=== PATIENT | female | born 1930 | race Caucasian/White ===

== ENCOUNTER 2019-07-26 09:34 | Inpatient (IN) | payer OTHER ==
--- NOTE | 2019-07-26 09:48 | PDOC ---
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 She presents to the emergency department with right hip pain status post presumed fall although patient does not recall unwitnessed. History limited by dementia Past History - Past Medical History Allergies/Adverse Reactions: Allergies Allergy/AdvReac Type Severity Reaction Status Date / Time No Known Allergies Allergy Unverified 07/26/19 09:37 Home Medications: Ambulatory Orders Aspirin 81 mg PO DAILY 07/26/19 Atorvastatin Ca [Lipitor] 80 mg PO HS 07/26/19 Review of Systems - Review of Systems Comments:: 07/26/19 10:53 ROS: A complete review of 10 out of 10 review of systems is taken and is negative apart from what is previously mentioned below and in the HPI. *Physical Exam - Physical Exam 07/26/19 10:54 Vitals: Triage Vital signs reviewed General Appearance: No acute distress, well nourished well developed, Head: Atraumatic, Cardiac: Regular rate and rhythym, no murmurs, no rubs, no gallops, Lungs: Clear to auscultation bilateral, good air movement bilaterally, Abdomen: Soft, non distended, normal bowel sounds, non tender to palpation Extremities: Leg right slightly shortened and rotated tenderness palpation over the right hip neurovascular intact distally Skin: Warm and dry, no rashes or lesions, no rash, no petechiae Neuro: Cranial Nerves 2-12 grossly intact, strength intact to all extremities, sensation intact to all extremities, Psych: Normal mood, normal affect ED Treatment Course - LABORATORY CBC & Chemistry Diagram: 07/26/19 10:30 07/26/19 10:30 Medical Decision Making - Medical Decision Making 07/26/19 10:54 History and examination concerning for right hip fracture. We will x-ray pain meds observe and reassess 07/26/19 17:31 Fracture at the base of the right femoral neck orthopedics consulted preop labs ordered patient admitted to medicine for further management Discharge - Discharge Information Problems reviewed: Yes Clinical Impression/Diagnosis: Hip fracture Qualifiers: Encounter type: initial encounter Fracture type: closed Laterality: right Qualified Code(s): S72.001A - Fracture of unspecified part of neck of right femur, initial encounter for closed fracture Condition: Stable - Admission Yes - Follow up/Referral - Patient Discharge Instructions - Post Discharge Activity
[2019-07-26] MEDS ORDERED: ACETAMINOPHEN 1000 MG/100 ML VIAL (NON FORMULARY) IVPB ONE ×2 (09:49→23:05)
[2019-07-26] MEDS ORDERED: ACETAMINOPHEN INJECTION 100 ML IVPB ONE (09:59)
[2019-07-26 10:57] LABS: HEMATOCRIT 36.5 % (32.4-45.2); HEMOGLOBIN 12.3 GM/dl (10.7-15.3); MCH 30.8 pg (25.7-33.7); MCHC 33.6 g/dl (32.0-36.0); MEAN CELL VOLUME 91.7 fl (80-96); MEAN PLT VOLUME 9.2 fl (7.5-11.1); PLATELET COUNT 261 K/MM3 (134-434); RBC 3.98 M/mm3 (3.60-5.2); RDW 13.4 % (11.6-15.6); WHITE BLOOD COUNT 15.9 K/mm3 (4.0-10.8)
[2019-07-26 11:18] LABS: INR 1.18 (0.82-1.09); PROTHROMBIN TIME (PATIENT) 13.2 SEC (10.2-13.0)
[2019-07-26 11:55] LABS: PLATELET ESTIMATE ADEQUATE
[2019-07-26 13:08] LABS: EPITHELIAL CELLS FEW /hpf
[2019-07-26 13:14] LABS: ALBUMIN 3.3 g/dl (3.4-5.0); BILIRUBIN,TOTAL 0.6 mg/dL (0.2-1); BLOOD UREA NITROGEN 14.4 mg/dL (7-18); CALCIUM 8.5 mg/dL (8.5-10.1); CREATININE 0.7 mg/dL (0.55-1.3); TOT PROT 6.4 g/dl (6.4-8.2)
[2019-07-26 13:44] VITALS: BMI 22.4
--- NOTE | 2019-07-26 13:45 | HP ---
CHIEF COMPLAINT: Right hip pain PCP: Dr. Banuelos HISTORY OF PRESENT ILLNESS: 89 year-old female, resident of [facility], with a PMH significant for hyperlipidemia, dementia, and LLE weakness. Patient complained of right hip pain when the staff got her out of bed today. There was no witnessed fall. Patient has two small abrasions to her right forearm and a small bruise of the right elbow. Patient was brought to the ED and found to have an acute right femoral neck fracture with varus deformity. ER course was notable for: (1) WBC 15.9 (2) Pyuria Recent Travel: No PAST MEDICAL HISTORY: Hyperlipidemia LLE PAST SURGICAL HISTORY: Social History: [place] Smoking: no Alcohol: no Drugs: no Allergies No Known Allergies Allergy (Unverified 07/26/19 09:37) HOME MEDICATIONS: Home Medications Medication Instructions Recorded Aspirin 81 mg PO DAILY 07/26/19 Atorvastatin Ca [Lipitor] 80 mg PO HS 07/26/19 REVIEW OF SYSTEMS: unable to obtain due to dementia PHYSICAL EXAMINATION Vital Signs - 24 hr 07/26/19 07/26/19 07/26/19 09:36 11:53 13:32 Temperature 97.7 F 97.6 F Pulse Rate 96 H 62 Pulse Rate [ 61 Left Radial] Respiratory 18 18 17 Rate Blood Pressure 139/61 131/38 L Blood Pressure 127/49 L [Right Arm] O2 Sat by Pulse 97 96 Oximetry (%) GENERAL: A&Ox1 HEAD: Normal with no signs of trauma. EYES: Pupils equal, round and reactive to light, extraocular movements intact, sclera anicteric, conjunctiva clear. LUNGS: Anterior breath sounds CTA HEART: Regular rate and rhythm, normal S1 and S2 ABDOMEN: Soft, nontender, not distended : hill UPPER EXTREMITIES: 2+ pulses, warm, well-perfused. No cyanosis. No clubbing. No peripheral edema. RIGHT LOWER EXT: 2+ pulses, warm, well-perfused, slightly shortened and slightly rotated; tenderness over right hip; no calf tenderness; no peripheral edema. NEUROLOGICAL: Cranial nerves II-XII intact. Normal speech. Laboratory Results - last 24 hr 07/26/19 07/26/19 07/26/19 10:30 10:30 10:30 WBC 15.9 H RBC 3.98 Hgb 12.3 Hct 36.5 MCV 91.7 MCH 30.8 MCHC 33.6 RDW 13.4 Plt Count 261 MPV 9.2 Absolute Neuts (auto) 14.5 Neutrophils % No Result Required. Neutrophils % (Manual) 85.0 H Band Neutrophils % 2.0 Lymphocytes % No Result Required. Lymphocytes % (Manual) 5.0 L Monocytes % (Manual) 8 Platelet Estimate Adequate PT with INR INR PTT (Actin FS) 26.7 Sodium 140 Potassium 4.0 Chloride 109 H Carbon Dioxide 23 Anion Gap 8 BUN 14.4 Creatinine 0.7 Est GFR (CKD-EPI)AfAm 89.03 Est GFR (CKD-EPI)NonAf 76.82 Random Glucose 130 H Calcium 8.5 Total Bilirubin 0.6 AST 21 ALT 18 Alkaline Phosphatase 159 H Total Protein 6.4 Albumin 3.3 L Urine Color Urine Appearance Urine pH Urine Protein Urine Glucose (UA) Urine Ketones Urine Blood Urine Nitrite Urine Bilirubin Urine Urobilinogen Ur Leukocyte Esterase Urine RBC Urine WBC Ur Transition Epith Cell Urine Bacteria Blood Type Antibody Screen 07/26/19 07/26/19 07/26/19 10:30 10:30 10:35 WBC RBC Hgb Hct MCV MCH MCHC RDW Plt Count MPV Absolute Neuts (auto) Neutrophils % Neutrophils % (Manual) Band Neutrophils % Lymphocytes % Lymphocytes % (Manual) Monocytes % (Manual) Platelet Estimate PT with INR 13.2 H INR 1.18 PTT (Actin FS) Sodium Potassium Chloride Carbon Dioxide Anion Gap BUN Creatinine Est GFR (CKD-EPI)AfAm Est GFR (CKD-EPI)NonAf Random Glucose Calcium Total Bilirubin AST ALT Alkaline Phosphatase Total Protein Albumin Urine Color Urine Appearance Urine pH Urine Protein Urine Glucose (UA) Urine Ketones Urine Blood Urine Nitrite Urine Bilirubin Urine Urobilinogen Ur Leukocyte Esterase Urine RBC Urine WBC Ur Transition Epith Cell Urine Bacteria Blood Type B POSITIVE B POSITIVE Antibody Screen Negative 07/26/19 12:40 WBC RBC Hgb Hct MCV MCH MCHC RDW Plt Count MPV Absolute Neuts (auto) Neutrophils % Neutrophils % (Manual) Band Neutrophils % Lymphocytes % Lymphocytes % (Manual) Monocytes % (Manual) Platelet Estimate PT with INR INR PTT (Actin FS) Sodium Potassium Chloride Carbon Dioxide Anion Gap BUN Creatinine Est GFR (CKD-EPI)AfAm Est GFR (CKD-EPI)NonAf Random Glucose Calcium Total Bilirubin AST ALT Alkaline Phosphatase Total Protein Albumin Urine Color Yellow Urine Appearance Turbid Urine pH 8.5 H Urine Protein 2+ H Urine Glucose (UA) Negative Urine Ketones 2+ H Urine Blood 2+ H Urine Nitrite Positive H Urine Bilirubin Negative Urine Urobilinogen 1.0 Ur Leukocyte Esterase 1+ Urine RBC >100 Urine WBC >100 Ur Transition Epith Cell Few Urine Bacteria Many Blood Type Antibody Screen ASSESSMENT/PLAN 89 year-old female, resident of [facility], with a PMH significant for hyperlipidemia, dementia, and LLE weakness. Admitted with right hip fracture. Right femoral neck fracture --CXR unremarkable --ECG sinus rhythm --no cardiac history --plan is for OR this afternoon with Dr. Solis; the benefits of the planned procedure outweigh the relative risks; patient is medically optimized for surgery Hyperlipidemia --hold PO statin Pyuria --elevated WBC --culture pending --start ceftriaxone in am; will get perioperative abx today FEN Fluids: LR@125mL/hr Electrolytes: replete as indicated Nutrition: NPO DVT prophylaxis: SCDs Physical therapy Dispo: continues to require inpatient care.HCP is Lia Nicolas, Director of Health Services, [facility]. Executed DNR in paper chart. Visit type - Emergency Visit Emergency Visit: Yes ED Registration Date: 07/26/19 Care time: The patient presented to the Emergency Department on the above date and was hospitalized for further evaluation of their emergent condition. - New Patient This patient is new to me today: Yes Date on this admission: 07/26/19 - Critical Care Critical Care patient: No
[2019-07-26] MEDS ORDERED: PROPOFOL 20 ML ONE (14:26)
[2019-07-26] MEDS ORDERED: LACTATED RINGERS SOLUTION 1,000 ML/1,000 ML INFUS.BAG IV SCH (15:00)
[2019-07-26] MEDS ORDERED: SODIUM CHLORIDE 1,000 ML IV SCH (15:00)
--- NOTE | 2019-07-26 15:14 | EKG ---
Test Reason : Blood Pressure : / mmHG Vent. Rate : 064 BPM Atrial Rate : 064 BPM P-R Int : 216 ms QRS Dur : 080 ms QT Int : 448 ms P-R-T Axes : 058 -07 002 degrees QTc Int : 462 ms SINUS RHYTHM WITH 1ST DEGREE A-V BLOCK WITH PREMATURE ATRIAL COMPLEXES OTHERWISE NORMAL ECG NO PREVIOUS ECGS AVAILABLE Confirmed by Griffin Caruso MD ([id number]) on 07/26/2019 3:14:08 PM Referred By: BYRON HARDING Confirmed By:Griffin Caruso MD
[2019-07-26] MEDS ORDERED: ePHEDrine SULFATE 50 MG/1 ML AMPULE ONE (16:15)
[2019-07-26] MEDS ORDERED: ONDANSETRON 4 MG/2 ML VIAL IVPUSH PRN (16:34)
--- NOTE | 2019-07-26 16:57 | CONS ---
ORTHOPAEDIC CONSULTATION [facility] DATE OF CONSULTATION: 07/26/2019 HISTORY: Patient is an 89-year-old female, a resident of the [facility] with status post fall complaining of increased pain in the right hip with inability to ambulate. Patient was transferred to the emergency room at [facility], and evaluation was there performed by the ER staff with x-rays, which revealed a displaced right intertrochanteric hip fracture. Patient was cleared by the medical team and by anesthesia for surgery. PHYSICAL EXAMINATION: Patient has marked increased pain with range of motion right hip. Marked shortening of the right lower extremity as compared to the left. Good range of motion right knee, ankle, and toes are, otherwise, neurovascular intact. Minimal swelling, ecchymosis, erythema. I reviewed the x-rays, which show a displaced right intertrochanteric hip fracture. IMPRESSION: Displaced right intertrochanteric hip fracture. PLAN: discussed with the patient and with the liaison from [facility]. Patient will be booked for a right Gamma nail later today. TATIANNA BOOKER M.D. [id number]
--- NOTE | 2019-07-26 20:00 | SPEC ---
DATE OF OPERATION: DATE OF DICTATION: 07/26/2019 PREOPERATIVE DIAGNOSIS: Right intertrochanteric hip fracture. POSTOPERATIVE DIAGNOSIS: Right intertrochanteric hip fracture. PROCEDURE: Right Gamma nailing. SURGICAL ATTENDING: Tatianna Solis MD ABSENCE MANAGEMENT CONSULTANT: JENNIFER Gray ANESTHESIA: Spinal. CLOSURE: A short Gamma nail with appropriate interlocking screws, 0 Vicryl fascia, 2-0 subcutaneous, aubrey to skin. ESTIMATED BLOOD LOSS: Negligible. COMPLICATIONS: None. CONDITION: To Recovery in stable condition. DESCRIPTION OF THE PROCEDURE: The patient was taken to the operating room on . IV Kefzol was administered prophylactically prior to the case. Anesthesia was administered by the anesthesiologist. The patient was then fastened to the fracture table with all prominences well padded. Excellent reduction of the fracture was confirmed in AP and lateral plane by use of fluoroscopy. The right hip area was then prepped and draped in the usual sterile fashion by use of a shower curtain. A small 2-cm longitudinal incision over the tip of the greater trochanter was incised, hemostasis achieved using Bovie cautery. Sharp dissection was carried through the fascia. A guidewire was drilled from the tip of the greater trochanter into the intramedullary canal past the fracture. This was directed by fluoroscopy in both the AP and lateral plane. This was overreamed with a proximal reamer. A short Gamma nail was then malleted down into place. Using the outrigger and a small stab incision laterally, a guidewire was drilled from the lateral aspect of the femur, through the reina, through the neck into the femoral head. Proper placement was confirmed in the AP and lateral plane by using the image intensifier. The guidewire was measured for length, reamed with a triple reamer, and then screwed with the appropriate-sized lag screw. With the traction removed, the compression device was used to compress the fracture. A set screw was placed from above in the dynamic fashion. Again using the outrigger and through a small stab incision distally, a distal hole was drilled, depth gauged and screwed with the appropriate length locking screw in the static hole. The outrigger was removed. The x-rays in the AP and lateral plane revealed excellent position of the hardware with excellent reduction of the fracture. All incisions were irrigated out with copious amounts of irrigation. The fascia was closed in 0 Vicryl, 2-0 subcutaneous, and aubrey to the skin. Sterile pressure dressing was applied, patient awakened from anesthesia and transferred to Recovery in stable condition. No complications. Estimated blood loss negligible. TATIANNA SOLIS M.D. [id number]
[2019-07-26] MEDS ORDERED: ATORVASTATIN CA 80 MG TABLET (FP) PO SCH (22:00)
[2019-07-26] MEDS: CEFAZOLIN 1 GM/D5W 1 GM/50 ML BAG IVPB SCH (22:26)
--- NOTE | 2019-07-27 00:38 | SPEC ---
DATE OF OPERATION: 07/26/2019 PREOPERATIVE DIAGNOSIS: Right intertrochanteric hip fracture. POSTOPERATIVE DIAGNOSIS: Right intertrochanteric hip fracture. PROCEDURE: Right Gamma nailing. SURGICAL ATTENDING: Tatianna Solis MD. ANESTHESIA: Spinal. CLOSURE: A short 125-degree Gamma nail with appropriate interlocking screws, number 1 Vicryl fascia, 0 and 2-0 subcutaneous, aubrey to skin. ESTIMATED BLOOD LOSS: Less than 100 mL. COMPLICATIONS: None. CONDITION: To Recovery in stable condition. DESCRIPTION OF THE PROCEDURE: The patient was taken to the operating room on July 26, 2019. IV Kefzol was administered prophylactically prior to the case. Anesthesia was administered by the anesthesiologist. The patient was then fastened to the fracture table with all prominences well padded. Excellent reduction of the fracture was confirmed in AP and lateral plane by use of fluoroscopy. The right hip area was then prepped and draped in the usual sterile fashion by use of a shower curtain. A small 2-cm longitudinal incision over the tip of the greater trochanter was incised, hemostasis achieved using Bovie cautery. Sharp dissection was carried through the fascia. A guidewire was drilled from the tip of the greater trochanter into the intramedullary canal past the fracture. This was directed by fluoroscopy in both the AP and lateral plane. This was overreamed with a proximal reamer. A short Gamma nail was then malleted down into place. Using the outrigger and a small stab incision laterally, a guidewire was drilled from the lateral aspect of the femur, through the reina, through the neck into the femoral head. Proper placement was confirmed in the AP and lateral plane by using the image intensifier. The guidewire was measured for length, reamed with a triple reamer, and then screwed with the appropriate-sized lag screw. With the traction removed, the compression device was used to compress the fracture. A set screw was placed from above in the dynamic fashion. Again using the outrigger and through a small stab incision distally, a distal hole was drilled, depth gauged and screwed with the appropriate length locking screw in the static hole. The outrigger was removed. The x-rays in the AP and lateral plane revealed excellent position of the hardware with excellent reduction of the fracture. All incisions were irrigated out with copious amounts of irrigation. The fascia was closed in 0 Vicryl, 2-0 subcutaneous, and aubrey to the skin. Sterile pressure dressing was applied, patient awakened from anesthesia and transferred to Recovery in stable condition. No complications. Estimated blood loss negligible. TATIANNA SOLIS M.D. [id number]
[2019-07-27] MEDS: CEFAZOLIN 1 GM/D5W 1 GM/50 ML BAG IVPB SCH (06:01)
[2019-07-27 07:14] LABS: BASO % 0.2 % (0-2.0); EOS % 1.1 % (0-4.5); HEMATOCRIT 31.6 % (32.4-45.2); HEMOGLOBIN 10.8 GM/dl (10.7-15.3); LYMPH % 5.9 % (8-40); MCH 31.6 pg (25.7-33.7); MCHC 34.1 g/dl (32.0-36.0); MEAN CELL VOLUME 92.7 fl (80-96); MONO % 5.7 % (3.8-10.2); NEUT % 87.1 % (42.8-82.8); PLATELET COUNT 207 K/MM3 (134-434); RDW 13.1 % (11.6-15.6); WHITE BLOOD COUNT 10.9 K/mm3 (4.0-10.8)
[2019-07-27] MEDS ORDERED: ACETAMINOPHEN 1000 MG/100 ML VIAL (NON FORMULARY) IVPB PRN (08:36)
--- NOTE | 2019-07-27 08:38 | PN ---
Progress Note (short form) - Note Progress Note: Ortho Pt seen and examined s/p right IM gamma nail pod #1 Selected Entries 07/27/19 06:00 Temperature 98.2 F Pulse Rate 81 Respiratory 16 Rate Blood Pressure 136/45 L Laboratory Tests 07/27/19 07:04 WBC 10.9 H Hgb 10.8 Hct 31.6 L Plt Count 207 dressing c/d/i, calf soft, nt nvi a/p PT wbat dvt ppx pain control d/c planning
[2019-07-27] MEDS: CEFTRIAXONE 1 G/50 ML PREMIX 50 ML IVPB SCH (09:53)
[2019-07-27] MEDS ORDERED: ASPIRIN 81 MG CHEWABLE TABLETS PO SCH (10:00)
[2019-07-27] MEDS ORDERED: CEFTRIAXONE 1 GM in DEXTROSE 5%-WATER - 50 ML IVPB SCH (10:00)
[2019-07-27] MEDS ORDERED: ENOXAPARIN NA (PORCINE) 40 MG/0.4 ML DISP.SYRIN SQ SCH (10:00)
[2019-07-27 10:04] LABS: ALBUMIN 2.8 g/dl (3.4-5.0); BILIRUBIN,TOTAL 0.8 mg/dL (0.2-1); BLOOD UREA NITROGEN 11.2 mg/dL (7-18); CALCIUM 8.2 mg/dL (8.5-10.1); CREATININE 0.7 mg/dL (0.55-1.3); POTASSIUM 3.6 mmol/L (3.5-5.1); TOT PROT 5.5 g/dl (6.4-8.2)
--- NOTE | 2019-07-27 21:15 | PN ---
Physical Exam: SUBJECTIVE: Patient seen and examined at bedside. OBJECTIVE: Vital Signs Period Temp Pulse Resp BP Sys/Douglass Pulse Ox Last 24 Hr 97.4 F-98.2 F 73-98 16-18 107-136/38-64 95-96 GENERAL: A&Ox2 LUNGS: Breath sounds equal, clear to auscultation bilaterally, no wheezes, no crackles, no accessory muscle use. HEART: Regular rate and rhythm, S1, S2 ABDOMEN: Soft, nontender, nondistended EXTREMITIES: Surgical dressing c/d/i NEUROLOGICAL: Cranial nerves II through XII grossly intact. Laboratory Results - last 24 hr 07/27/19 07/27/19 07:04 07:04 WBC 10.9 H RBC 3.40 L Hgb 10.8 Hct 31.6 L MCV 92.7 MCH 31.6 MCHC 34.1 RDW 13.1 Plt Count 207 MPV 9.0 Absolute Neuts (auto) 9.6 Neutrophils % 87.1 H Lymphocytes % 5.9 L Monocytes % 5.7 Eosinophils % 1.1 Basophils % 0.2 Sodium 141 Potassium 3.6 Chloride 109 H Carbon Dioxide 26 Anion Gap 6 L BUN 11.2 Creatinine 0.7 Est GFR (CKD-EPI)AfAm 89.03 Est GFR (CKD-EPI)NonAf 76.82 Random Glucose 110 H Calcium 8.2 L Magnesium 2.0 Total Bilirubin 0.8 AST 119 H ALT 120 H Alkaline Phosphatase 188 H Total Protein 5.5 L Albumin 2.8 L Active Medications Generic Name Dose Route Start Last Admin Trade Name Freq PRN Reason Stop Dose Admin Acetaminophen 1,000 mg 07/27/19 08:36 07/27/19 09:49 Ofirmev Injection - IVPB 07/28/19 08:36 1,000 mg Q6H PRN Administration PAIN LEVEL 6-10 Enoxaparin Sodium 40 mg 07/27/19 10:00 07/27/19 09:53 Lovenox - SQ 40 mg DAILY CHITO Administration Fentanyl 25 mcg 07/26/19 16:34 Sublimaze Injection - IVPUSH [id number] PRN PAIN-PACU ORDER X 4 DOSES ONLY Sodium Chloride 1,000 mls @ 75 mls/hr 07/26/19 15:00 07/26/19 17:08 Normal Saline - IV 0 mls ASDIR CHITO Administration Ceftriaxone Sodium 50 mls @ 100 mls/hr 07/27/19 10:00 07/27/19 09:53 Ceftriaxone 1 Gm-D5w Bag IVPB 100 mls/hr DAILY CHITO Administration Protocol Ondansetron HCl 4 mg 07/26/19 16:34 Zofran Injection IVPUSH Q6H PRN NAUSEA AND/OR VOMITING ASSESSMENT/PLAN: 89 year-old female, resident of [facility], with a PMH significant for hyperlipidemia, left hemiplegia s/p CVA/SAH . Admitted with right hip fracture. Right femoral neck fracture s/p gamma nail on 07/26/19 --POD #1 --perioperative antibiotics per surgery --pain presently well-managed with Tylenol Hyperlipidemia --resume atorvastatin Pyuria --WBC trending down --culture pending --ceftriaxone (day #1) Elevated transaminases --trend; repeat in am FEN Fluids: PO intake adequate Electrolytes: replete as indicated Nutrition: NPO DVT prophylaxis: subq lovenox Physical therapy Dispo: continues to require inpatient care. HCP is Lia Nicolas, Director of Health Services, [facility]. DNR/DNI Visit type - Emergency Visit Emergency Visit: Yes ED Registration Date: 07/26/19 Care time: The patient presented to the Emergency Department on the above date and was hospitalized for further evaluation of their emergent condition. - New Patient This patient is new to me today: No - Critical Care Critical Care patient: No
[2019-07-27] MEDS ORDERED: ATORVASTATIN CA 80 MG TABLET (FP) PO SCH (22:00)
[2019-07-28 08:24] LABS: ALBUMIN 2.5 g/dl (3.4-5.0); BILIRUBIN,DIRECT 0.2 mg/dL (0.0-0.2); BILIRUBIN,TOTAL 0.9 mg/dl (0.2-1); CALCIUM 7.7 mg/dl (8.5-10); CREATININE 0.5 mg/dl (0.55-1.3); MAGNESIUM 1.7 mg/dL (1.8-2.4); TOT PROT 4.9 g/dl (6.4-8.2)
[2019-07-28 08:29] LABS: BASO % 0.4 % (0-2.0); EOS % 1.5 % (0-4.5); HEMATOCRIT 29.7 % (32.4-45.2); LYMPH % 6.2 % (8-40); MCH 31.3 pg (25.7-33.7); MCHC 33.6 g/dl (32.0-36.0); MEAN CELL VOLUME 93.1 fl (80-96); MEAN PLT VOLUME 9.8 fl (7.5-11.1); MONO % 7.8 % (3.8-10.2); NEUT % 84.1 % (42.8-82.8); PLATELET COUNT 201 K/MM3 (134-434); RBC 3.19 M/mm3 (3.60-5.2); RDW 13.4 % (11.6-15.6); WHITE BLOOD COUNT 11.9 K/mm3 (4.0-10.8)
[2019-07-28] MEDS ORDERED: MAGNESIUM SULF 50% (8.12 MEQ/2 ML-1 GM VIAL) IVPB ONE (08:37)
[2019-07-28] MEDS ORDERED: MAGNESIUM SULFATE IN WATER 2 GM/50 ML IVPB IVPB ONE (08:45)
--- NOTE | 2019-07-28 08:47 | PN ---
Progress Note (short form) - Note Progress Note: Ortho Pt seen and examined s/p right IM gamma nail pod #2 Selected Entries 07/28/19 06:00 Temperature 97.7 F Pulse Rate 88 Respiratory 19 Rate Blood Pressure 135/44 L Laboratory Tests 07/28/19 07:29 WBC 11.9 H Hgb 10.0 L Hct 29.7 L Plt Count 201 dressing c/d/i, calf soft, nt nvi a/p PT wbat dvt ppx pain control ok to d/c to [facility] if medically stable
[2019-07-28] MEDS: POTASSIUM CHLORIDE TABS 20 MEQ TABLET.ER (FP) PO SCH ×2 (08:49→13:18)
[2019-07-28] MEDS ORDERED: ENOXAPARIN NA (PORCINE) 40 MG/0.4 ML DISP.SYRIN SQ SCH (10:00)
[2019-07-28] MEDS: CEFTRIAXONE 1 G/50 ML PREMIX 50 ML IVPB SCH (10:04)
[2019-07-28 10:48] VITALS: BP 130/62; PULSE 78; TEMP 97.8
--- NOTE | 2019-07-28 12:40 | DS ---
Physical Exam: SUBJECTIVE: Patient seen and examined OBJECTIVE: Vital Signs Period Temp Pulse Resp BP Sys/Douglass Pulse Ox Last 24 Hr 97.4 F-97.9 F 78-98 16-19 122-140/40-62 95-96 PHYSICAL EXAM GENERAL: A&Ox2 LUNGS: Breath sounds equal, clear to auscultation bilaterally, no wheezes, no crackles, no accessory muscle use. HEART: Regular rate and rhythm, S1, S2 ABDOMEN: Soft, nontender, nondistended EXTREMITIES: Surgical dressing c/d/i NEUROLOGICAL: Cranial nerves II through XII grossly intact. LABS Laboratory Results - last 24 hr 07/28/19 07/28/19 07:29 07:29 WBC 11.9 H RBC 3.19 L Hgb 10.0 L Hct 29.7 L MCV 93.1 MCH 31.3 MCHC 33.6 RDW 13.4 Plt Count 201 MPV 9.8 Absolute Neuts (auto) 10.1 Neutrophils % 84.1 H Lymphocytes % 6.2 L Monocytes % 7.8 Eosinophils % 1.5 Basophils % 0.4 Sodium 137 Potassium 3.0 L Chloride 107 Carbon Dioxide 23 Anion Gap 7 L BUN 10.0 Creatinine 0.5 L Est GFR (CKD-EPI)AfAm 99.45 Est GFR (CKD-EPI)NonAf 85.81 Random Glucose 108 H Calcium 7.7 L Magnesium 1.7 L Total Bilirubin 0.9 Direct Bilirubin 0.2 AST 37 ALT 39 Alkaline Phosphatase 115 Total Protein 4.9 L Albumin 2.5 L HOSPITAL COURSE: Date of Admission:07/26/19 Date of Discharge: 07/28/19 Pre hospital course 89 year-old female, resident of [facility], with a PMH significant for hyperlipidemia, dementia, and LLE weakness. Patient complained of right hip pain when the staff got her out of bed today. There was no witnessed fall. Patient has two small abrasions to her right forearm and a small bruise of the right elbow. Patient was brought to the ED and found to have an acute right femoral neck fracture with varus deformity. ER course (1) WBC 15.9 (2) Pyuria Subsequent hospital course 89 year-old female, resident of [facility], with a PMH significant for hyperlipidemia, left hemiplegia s/p CVA/SAH . Admitted with right hip fracture. Right femoral neck fracture s/p gamma nail on 1/28/20 --perioperative antibiotics completed --pain well-managed with Tylenol Hyperlipidemia --resumed atorvastatin Proteus UTI --ceftriaxone x 2 days; discharge on cefuroxime 250mg BID x 5 days Elevated transaminases --resolved, values wnl Minutes to complete discharge: 35 Discharge Summary Problems reviewed: Yes Reason For Visit: FRACTURE OF NECK OF FEMUR Current Active Problems Hip fracture (Acute) Condition: Stable - Instructions Referrals: Kevin Banuelos MD [Primary Care Provider] - - Home Medications Comprehensive Discharge Medication List: Ambulatory Orders Aspirin 81 mg PO DAILY 07/26/19 Atorvastatin Ca [Lipitor] 80 mg PO HS 07/26/19 This patient is new to me today: No Emergency Visit: Yes ED Registration Date: 07/26/19 Care time: The patient presented to the Emergency Department on the above date and was hospitalized for further evaluation of their emergent condition. Critical Care patient: No - Discharge Referral Referred to [facility] No
== END 2019-07-28 13:32 | DRG 481 ==
LOC: FER 09:34 → FM/S 11:29
PROVIDERS: ADMIT Internal Medicine; ATTEND Nurse Practitioner Acute Care
PROC: 0QS606Z Reposition Right Upper Femur with Intramedullary Internal Fixation Device, Open Approach (ICD-10-PCS; principal; 2019-07-26 16:14)
DX: S72.141A Displaced intertrochanteric fracture of right femur, initial encounter for closed fracture (principal); I69.354 Hemiplegia and hemiparesis following cerebral infarction affecting left non-dominant side; N39.0 Urinary tract infection, site not specified; E78.5 Hyperlipidemia, unspecified; B96.4 Proteus (mirabilis) (morganii) as the cause of diseases classified elsewhere; F03.90 Unspecified dementia, unspecified severity, without behavioral disturbance, psychotic disturbance, mood disturbance, and anxiety; R74.0 Nonspecific elevation of levels of transaminase and lactic acid dehydrogenase [LDH]; W19.XXXA Unspecified fall, initial encounter; Y93.9 Activity, unspecified; Y92.89 Other specified places as the place of occurrence of the external cause; Y99.9 Unspecified external cause status
CPT/HCPCS: 36415; 70450-TC; 71045-TC-FY; 72192-TC; 73501-TC-RT-FY; 73523-TC-FY; 76000-TC-FY; 80048; 80053; 80076; 81003; 81015; 83735; 85025; 85610; 85730; 86850; 86900; 86901; 87086; 87186; 93005; 94760; 97116-GP; 97162-GP; 99284-25; J0131; J7030